=== PATIENT | female | born 1955 | race Two or more races ===

== ENCOUNTER 2017-05-18 13:59 | Emergency (ER) | payer BC ==
[~2017-05-18] VITALS: Ht 157.5 cm; Wt 51.3 kg
--- NOTE | 2017-05-18 13:59 | NUR ---
PT AMBULATORY TO ER BED 14. C/O L FOOT PAIN S/P "I TWISTED IT AND ALMOST FELL LAST NIGHT." BRUISING NOTED. REFUSING PAIN MEDS. AWAITING MD GALVAN.
--- NOTE | 2017-05-18 14:30 | NUR ---
RONY WAGNER AT BEDSIDE FOR EVAL.
--- NOTE | 2017-05-18 14:32 | NUR ---
RADIOLOGY AT BEDSIDE FOR L FOOT XRAY.
--- NOTE | 2017-05-18 16:16 | NUR ---
Patient discharged to home in stable condition. Written and verbal after care instructions given. Patient verbalizes understanding of instruction. Crutches dispensed. Pt instructed on proper use of crutches. Patient able to demonstrate correct use of crutches.
[2017-05-18 16:18] VITALS: BP 125/87
== END 2017-05-18 16:18 | disposition home or self-care (01) ==
LOC: ER 14:04
DX: S92.352A Displaced fracture of fifth metatarsal bone, left foot, initial encounter for closed fracture (principal); Z90.710 Acquired absence of both cervix and uterus; X50.9XXA Other and unspecified overexertion or strenuous movements or postures, initial encounter; Y93.89 Activity, other specified; Y92.89 Other specified places as the place of occurrence of the external cause; Y99.8 Other external cause status
CPT/HCPCS: 73630-TC; A4606; Z7610